=== PATIENT | male | born 1960 | race Caucasian/White ===

== ENCOUNTER 2016-02-09 20:39 | Emergency (ER) | payer SELFPAY ==
[2016-01-22 23:11] VITALS: BMI 24.7
[~2016-02-09 20:39] MED LIST: ASPIRIN81 MG PO; LOPRESSOR25 MG PO; NITROSTAT0.4 MG SL; PLAVIX75 MG PO; PRAVACHOL20 MG PO
[2016-02-09 21:37] LABS: BASOPHILS 0.3 % (0.0-2.0); EOSINOPHILS 2.3 % (0-7); HEMATOCRIT 47.7 % (42.0-54.0); HEMOGLOBIN 16.7 g/dL (13.5-17.5); IMMATURE GRANULOCYTES 0.3 % (0-5); LYMPHOCYTES 39.6 % (15-50); MCH 33.5 pg (26.0-34.0); MCV 95.8 fL (80.0-100.0); MEAN PLATELET VOLUME 10.5 fL (7.4-10.4); MONOCYTES 8.1 % (2-11); NEUTROPHILS 49.4 % (40-80); PLATELET COUNT 200 10x3/uL (130-400); RBC 4.98 10x6/uL (4.20-6.10); RDW 12.1 % (11.5-14.5); WBC 7.9 10x3/uL (4.8-10.8)
[2016-02-09 21:54] LABS: ALBUMIN 3.3 g/dL (3.4-5.0); ALKALINE PHOSPHATASE 137 U/L (46-116); ALT (SGPT) 39 U/L (10-68); BILIRUBIN - TOTAL 0.22 mg/dL (0.2-1.3); CALC OSMOLALITY 275 mosm/kg (275-300); CALCIUM 8.8 mg/dL (8.5-10.1); CARBON DIOXIDE 27.1 mmol/L (21.0-32.0); CHLORIDE - SERUM 104 mmol/L (98-107); CREATININE - SERUM 0.9 mg/dL (0.6-1.3); GLUCOSE 97 mg/dL (74-106); POTASSIUM - SERUM 3.8 mmol/L (3.5-5.1); PROTEIN - SERUM 7.4 g/dL (6.4-8.2); SODIUM 139 mmol/L (136-145); UREA NITROGEN 8 mg/dL (7-18); eGFR NON AFRICAN AMERICAN > 90 mL/min (90-120)
[2016-02-09 22:05] LABS: CKMB 0.7 U/L (0.0-3.6); CREATINE KINASE 65 UL (21-232)
[2016-02-09 22:07] LABS: TROPONIN-I 0.176 ng/mL (0.000-0.060)
== END 2016-02-10 00:07 | disposition home or self-care (01) ==
LOC: D.ER 20:39
PROVIDERS: Emergency Medicine
DX: R07.9 Chest pain, unspecified (principal); I25.10 Atherosclerotic heart disease of native coronary artery without angina pectoris; J44.9 Chronic obstructive pulmonary disease, unspecified; F17.200 Nicotine dependence, unspecified, uncomplicated

== ENCOUNTER 2016-03-09 13:59 | Outpatient (CLI) | payer SELFPAY ==
[~2016-03-09] VITALS: Ht 172.7 cm; Wt 67.6 kg
--- NOTE | ~2016-03-09 | HEMODYNAMI ---
PATIENT:JULIANA ALVARADO MEDICAL RECORD: [id number] : 64 [facility] [id number] ADMISSION DATE: 03/09/16 Generatedon:03/10/201611:40 Patient name: JULIANA ALVARADO Patient #: [id number] SSN: [id number] : 1960 Date of study: 03/10/2016 Page: Of Hemodynamic Procedure Report Patient Data Patient Demographics Procedure consent was obtained First Name: JULIANA Gender: Male Last Name: JENNY : 1960 Middle Initial: PEPE Age: 55 year(s) Patient #: [id number] Race: SSN: [id number] Additional ID: [id number] Contact details [address]: [address] [place] [address] State: [place] City: [place] Zip code: [address] Past Medical History Allergies: No known allergies Admission Admission Data Admission Date: 03/09/2016 Admission Time: 14:07 Room #: .[facility] Insurance Payor: None Height (in.): 68 BSA: 1.8 (m2) Height (cm.): 172.72 BMI: 22.67 (kg/m2) Weight (lbs.): 149.1 Weight (kg.): 67.63 Lab Results Lab Result Date: 03/10/2016 Lab Result Time: 5:42 Biochemistry Name Units Result Min Max BUN mg/dl 11 --(-*--)-- 7 18 Creatinine mg/dl 1 --(--*-)-- 0.6 1.3 CBC Name Units Result Min Max Hematocrit % 50.8 --(--*-)-- 42 54 Hemoglobin g/dl 18 --(----)*- 13.5 17.5 Procedure Procedure Types Cath Procedure Diagnostic Procedure C LH w/Coronaries PCI Procedure Coronary Stent Initial Procedure Description Procedure Date Procedure Date: 03/10/2016 Procedure Start Time: 11:03 Procedure End Time: 11:35 Procedure Staff Name Function Diony Mathias MD Performing Physician Jerrell Copeland RT Scrub Florentino Kumari RN Nurse Charles Ortiz RT Buffet Runner Neil Dickson RT Monitor Procedure Data Cath Procedure Fluoroscopy Diagnostic fluoroscopy Total fluoroscopy Time: 8.9 time: 8.9 min min Diagnostic fluoroscopy Total fluoroscopy dose: 807 dose: 807 mGy mGy Contrast Material Contrast Material Type Amount (ml) Isovue 300 133 Entry Location Entry Primary Successful Side Size Upsize Upsize Entry Closure Moreno ccessful Closure Location (Fr) 1 (Fr) 2 (Fr) Remarks Device Remarks Radial Right 6 Fr Mechanical artery Short Compression Estimated blood loss: 10 ml Diagnostic catheters Device Type Used For End Catheter Placement Terumo Optitorque 5Fr Procedure Durant 4.5 catheter Procedure Complications No complications Procedure Medications Medication Administration Route Dosage Oxygen NC 2 l/min Lidocaine 2% added to field 20 Heparin Flush Bag added to field 2 bags (1000units/500ml NS) 0.9% NaCl I.V. 100 ml/hr Versed I.V. 1 mg Fentanyl I.V. 50 mcg Versed I.V. 1 mg Fentanyl I.V. 50 mcg Radial Cocktail I.A. 1 syringe (Verapomil 2mg/Nitro 400mcg/Heparin 1500units) Versed I.V. 0.5 mg Fentanyl I.V. 25 mcg Heparin Bolus I.V. 4000 units Integrilin (Bolus I.V. 6.2 ml 2mg/ml) Plavix P.O. 600 mg Hemodynamics Rest BSA: 1.8 (m2) HGB: 18 (g/dl) O2 Consumption: Estimated: 216.1 (ml/min) O2 Consum ption indexed: Estimated:120.06 (ml/min/m) Heart Rate: 73 (bpm) Snapshots Pre Cath Intra NCS Post Cath Vital Signs Time Heart Resp SPO2 etCO2 [id number] NIBP Rhythm Pain Sedation Rate (ipm) (%) (mmHg) (mmHg) (mmHg) Status Level (bpm) 10:48:59 69 14 96 0 0 101/67(81) NSR 0 (11) 10(A) , No pain 10:53:02 72 16 95 0 0 96/62(81) NSR 0 (11) 10(A) , No pain 10:57:04 69 15 96 0 0 97/61(89) NSR 0 (11) 10(A) , No pain 11:01:04 75 17 95 0 0 94/67(87) NSR 0 (11) 10(A) , No pain 11:05:03 74 16 95 0 0 100/69(84) NSR 0 (11) 9(A) , No pain 11:09:05 75 15 93 0 0 94/65(82) NSR 0 (11) 9(A) , No pain 11:13:09 72 17 95 0 0 86/52(75) NSR 0 (11) 9(A) , No pain 11:17:10 70 15 94 0 0 86/49(78) NSR 0 (11) 9(A) , No pain 11:21:14 69 16 95 0 0 90/47(74) NSR 0 (11) 9(A) , No pain 11:25:18 68 16 94 0 0 86/50(68) NSR 0 (11) 9(A) , No pain 11:29:20 70 16 94 0 0 82/49(65) NSR 0 (11) 9(A) , No pain 11:33:21 66 15 95 0 0 82/48(66) NSR 0 (11) 10(A) , No pain 11:37:19 63 16 96 0 0 92/50(0) NSR 0 (11) 10(A) , No pain Medications Time Medication Route Dose Verified Delivered Reason Note s Effectiveness by by 10:49:35 Oxygen NC 2 l/min Diony Buffie used for Mey Kumari RN procedure 10:49:42 Lidocaine 2% added 20ml Diony Diony for local to vial Mey Mathias MD anesthetic field 10:49:48 Heparin Flush added 2 bags Dionyelizabeth Vora used for Bag to Mey Mathias MD procedure (1000units/500ml field NS) 10:49:56 0.9% NaCl I.V. 100 Diony Buffie Per physician ml/hr Mey Kumari RN 10:59:10 Versed I.V. 1 mg Diony Buffie for sedation Mey Kumari RN 10:59:16 Fentanyl I.V. 50 mcg Diony Buffie for sedation Mey Kumari RN 11:05:27 Versed I.V. 1 mg Diony Buffie for sedation Tauth MD Kumari RN 11:05:31 Fentanyl I.V. 50 mcg Diony Good for sedation Mey Kumari RN 11:10:24 Radial Cocktail I.A. 1 Diony Vora for (Verapomil syringe Mey Mathias MD vasodilation 2mg/Nitro 400mcg/Heparin 1500units) 11:11:36 Versed I.V. 0.5 mg Diony Good for sedation Mey Kumari RN 11:11:40 Fentanyl I.V. 25 mcg Diony Good for sedation Mey Kumari RN 11:14:17 Heparin Bolus I.V. 4000 Diony Good for veri fied units Mey Kumari RN anticoagulation with dr mathias 11:17:43 Integrilin I.V. 6.2 ml Diony Good for (Bolus 2mg/ml) Mey Kumari RN antiplatelet therapy 11:35:09 Plavix P.O. 600 mg Diony Good for Mey Kumari RN antiplatelet therapy Procedure Log Time Note 10:15:48 Charles Ortiz RT(R) sent for patient. Start room use. 10:32:44 ACC Patient presents with Unstable Angina CCS Anginal Class 3--Marked limitation of physical activity, angina occurs with ordinary activity.. 10:32:46 Diagnostic Cath status Urgent 10:32:55 Time tracking: Regular hours 10:32:59 Plan of Care:Hemodynamics will remain stable., Cardiac rhythm will remain stable., Comfort level will be maintained., Respiratory function will remain adequate., Patient/ family verbilizes understanding of procedure., Procedure tolerated without complication., Recovers from procedure without complications.. 10:33:05 Patient received from PCU to CCL 1 Alert and oriented. Tansferred to table in Supine position. 10:33:12 Warm blankets applied, and bradford hugger turned on for patient comfort. 10:33:12 Correct patient and procedure confirmed by team. 10:33:13 Signed procedure consent form obtained from patient. 10:33:14 ECG and BP/O2 sat monitors applied to patient. 10:47:51 Vital chart was started 10:49:30 Pre-procedure instructions explained to patient. 10:49:31 Pre-op teaching completed and patient verbalized understanding. 10:49:33 Family in patients room. 10:49:34 Patient NPO since Midnight. 10:49:35 Oxygen 2 l/min NC was given by Florentino Kumari RN; used for procedure; 10:49:42 Lidocaine 2% 20ml vial added to field was given by Diony Mathias MD; for local anesthetic; 10:49:44 Patient allergic to No known allergies 10:49:46 Is the patient allergic to Iodine/contrast media? No. 10:49:47 Is patient on blood thinner?No 10:49:48 Heparin Flush Bag (1000units/500ml NS) 2 bags added to field was given by Diony Mathias MD; used for procedure; 10:49:48 Patient diabetic? No. 10:49:51 Previous problem with sedation/anesthesia? No ? 10:49:52 Snore? Yes 10:49:53 Sleep apnea? No 10:49:54 Deviated septum? No 10:49:55 Opens mouth fully? Yes 10:49:56 0.9% NaCl 100 ml/hr I.V. was given by Florentino Kumari RN; Per physician; 10:49:56 Sticks out tongue? Yes 10:49:58 Airway obstruction? No ? 10:50:00 Dentures? Yes in tight 10:50:04 Modified Marcus's test Ulnar < 7 seconds 10:50:05 Patient pain scale 0/10 ?. 10:50:17 IV started by Florentino Kumari RN inleft hand with a 22 gauge IV catheter with 0.9% NaCl at KVO. 10:50:27 IV right forearm D/C'd due to infiltration. 10:51:22 Lab Result : BUN 11 mg/dl 10:51:22 Lab Result : Hemoglobin 18 g/dl 10:51:22 Lab Result : Creatinine 1 mg/dl 10:51:22 Lab Result : Hematocrit 50.8 % 10:51:25 Lab results completed and on chart. 10:51:28 Right Radial & Right Groin area was prepped with chlora-prep and draped in sterile fashion 10:51:31 Alarms reviewed by R. N. 10:51:31 Sharps counted by scrub and verified by R.N. 10:51:32 Physician paged 10:51:34 Use device set Radial Dx 10:51:37 Tegaderm 4 x 4 opened to sterile field. 10:51:39 Acist Manifold opened to sterile field. 10:51:42 Acist Hand Control opened to sterile field. 10:51:45 Acist Syringe opened to sterile field. 10:51:45 Cardinal Cath Pack opened to sterile field. 10:51:46 Bag Decanter opened to sterile field. 10:51:46 Terumo 6Fr Slender Glidesheath opened to sterile field. 10:51:47 St Олег 260cm J .035 wire opened to sterile field. 10:51:52 Baseline sample Acquired. 10:51:58 Rhythm: sinus rhythm 10:51:59 Full Disclosure recording started 10:52:17 H&P Date Dictated: 03/09/2016 Within 30 days and on chart.. 10:52:28 Patient Height : 68 inches 10:52:34 Patient Weight : 149.1 lbs 10:54:41 Zero performed for pressure channel P1 10:56:19 Insurance Payor : None 10:57:59 --------ALL STOP TIME OUT------ 10:58:00 Final Timeout: patient, procedure, and site verified with staff and physician. All members of the team are in agreement. 10:58:01 Right Radial & Right Groin site verified by team. 10:58:03 Physical assessment completed. ASA score P 2 - A patient with mild systemic disease as per Diony Mathias MD. 10:58:06 Sedation plan: IV Moderate Sedation Versed, Fentanyl 10:59:10 Versed 1 mg I.V. was given by Florentino Kumari RN; for sedation; 10:59:16 Fentanyl 50 mcg I.V. was given by Florentino Kumari RN; for sedation; 11:03:27 Procedure started. 11:03:34 Local anesthetic to right radial artery with Lidocaine 2% by Diony Mathias MD.INITIAL ACCESS ONLY 11:03:50 A 6 Fr Short sheath was inserted into the Right Radial artery 11:05:27 Versed 1 mg I.V. was given by Florentino Kumari RN; for sedation; 11:05:31 Fentanyl 50 mcg I.V. was given by Florentino Kumari RN; for sedation; 11:10:24 Radial Cocktail (Verapomil 2mg/Nitro 400mcg/Heparin 1500units) 1 syringe I.A. was given by Diony Mathias MD; for vasodilation; 11:11:25 A Terumo Optitorque 5Fr Durant 4.5 catheter was advanced over the wire and used for Procedure. 11:11:32 LV gram done using STEIN 11:11:36 Versed 0.5 mg I.V. was given by Florentino Kumari RN; for sedation; 11:11:37 Injector settings: Ml/sec: 5, Volume: 15, 11:11:40 Fentanyl 25 mcg I.V. was given by Florentino Kumari RN; for sedation; 11:11:49 EF : 50 % 11:11:56 LCA angiography performed. 11:13:51 RCA angiography performed. 11:14:17 Heparin Bolus 4000 units I.V. was given by Florentino Kumari RN; for anticoagulation; verified with dr mathias 11:14:26 Cordis 6FR XBLAD 3.5 guide catheter opened to sterile field. 11:14:32 Catheter removed. 11:14:35 Merit BasixCompak Inflation Kit opened to sterile field. 11:14:37 [place] Staff Ranker Choice PT Extra Support J 300cm .014 gu opened to sterile field. 11:14:47 Proceeding to intervention. 11:15:03 ACC PCI Site: mLAD has 90% stenosis. 11:15:06 ACC Pre-intervention ADRIANA Flow is 1. 11:15:12 6 Fr xblad 3.5 guide catheter was inserted over the wire 11:15:18 PT ES wire advanced. 11:16:30 Wire advanced across lesion. 11:17:43 Integrilin (Bolus 2mg/ml) 6.2 ml I.V. was given by Florentino Kumari RN; for antiplatelet therapy; 11:18:01 Inflation number: 1 A Euphora 1.5 x 15 Balloon was prepped and advanced across the Mid LAD, then inflated to 21 SRINI for 0:10 (min:sec). 11:18:17 Inflation number: 2 The Euphora 1.5 x 15 Balloon was reinflated across the Mid LAD, to 23 SRINI for 0:10 (min:sec). 11:18:44 Inflation number: 3 The Euphora 1.5 x 15 Balloon was reinflated across the Mid LAD, to 23 SRINI for 0:10 (min:sec). 11:19:04 Balloon removed over the wire. 11:20:15 Inflation number: 4 A Euphora 2.0 x 15 Balloon was prepped and advanced across the Mid LAD, then inflated to 23 SRINI for 0:10 (min:sec). 11:20:31 Inflation number: 5 The Euphora 2.0 x 15 Balloon was reinflated across the Mid LAD, to 23 SRINI for 0:10 (min:sec). 11:21:10 Balloon removed over the wire. 11:23:54 Inflation number: 6 A [place] Sci Berkshire 3.0 X 12 balloon was prepped and advanced across the Mid LAD, then inflated to 15 SRINI for 0:10 (min:sec). 11:24:46 Inflation number: 7 The [place] Sci [place]hire 3.0 X 12 balloon was reinflated across the Mid LAD, to 13 SRINI for 0:10 (min:sec). 11:25:30 Balloon removed over the wire. 11:29:58 Inflation Number: 8 A Promus Premier OTW 3.0 x 8 stent was prepped and advanced across the Mid LAD. The stent was deployed at 19 SRINI for 0:10 (min:sec). 11:30:43 Stent catheter was removed intact over wire. 11:30:43 Wire removed. 11:30:44 Guide catheter removed. 11:31:06 Terumo TR Band Standard opened to sterile field. 11:31:39 Sheath removed intact; hemostasis achieved with Mechanical Compression to the Right Radial artery. 11:31:41 Procedure ended.(Physican Out) 11:33:34 Fluoroscopy time 08.90 minutes. 11:33:39 Flurop Dose total: 807 11:33:39 Fluoroscopy dose: 807 mGy 11:33:45 Contrast amount:Isovue 300 133ml. 11:33:56 Sharps counted by scrub and verified by R.N. 11:33:59 TR band inflated with 12cc of air. 11:34:01 Insertion/operative site no bleeding no hematoma. 11:34:28 Post right radial artery:stable, soft, clean and dry 11:34:30 Post Procedure Pulses reassessed and unchanged 11:34:33 Post-procedure physical assessment completed. ASA score P 2 - A patient with mild systemic disease as per Diony Mathias MD. 11:34:35 Post procedure rhythm: unchanged. 11:34:37 Estimated blood loss: 10 ml 11:34:39 Post procedure instruction explained to patient.Patient verbalizes understanding. 11:34:40 Patient needs reinforcement of post procedure teaching. 11:34:48 Procedure type changed to Cath procedure, Diagnostic procedure, LHC, LHC w/Coronaries, PCI procedure, Coronary Stent Initial 11:35:09 Plavix 600 mg P.O. was given by Florentino Kumari RN; for antiplatelet therapy; 11:35:32 Procedure and supply charges have been captured, reviewed, submitted and are correct. 11:35:35 Procedure Complication : No complications 11:35:37 Vital chart was stopped 11:35:37 See physician's report for complete and final results. 11:35:41 Report given to PCU. 11:35:50 Patient transfered to PCU with Stretcher. 11:35:53 Procedure ended. 11:35:53 Full Disclosure recording stopped 11:35:59 ACC-PCI Only Patient was given prescriptions, or instructed by Diony Mathias MD to start/continue the following medications upon discharge: Plavix 11:36:33 End room use (Document Last) Intervention Summary Intervention Notes Time ActionType Lesion and Equipment Action# Pressure Duration Attributes Used 11:18:01 Inflate Mid LAD Euphora 1 21 00:10 balloon 1.5 x 15 Balloon 11:18:17 Reinflate Mid LAD Euphora 2 23 00:10 balloon 1.5 x 15 Balloon 11:18:44 Reinflate Mid LAD Euphora 3 23 00:10 balloon 1.5 x 15 Balloon 11:20:15 Inflate Mid LAD Euphora 4 23 00:10 balloon 2.0 x 15 Balloon 11:20:31 Reinflate Mid LAD Euphora 5 23 00:10 balloon 2.0 x 15 Balloon 11:23:54 Inflate Mid LAD [place] 6 15 00:10 balloon Sci [place]kshire 3.0 X 12 balloon 11:24:46 Reinflate Mid LAD [place] 7 13 00:10 balloon Sci [place] 3.0 X 12 balloon 11:29:58 [address] stent Mid LAD Promus 8 19 00:10 Premier OTW 3.0 x 8 stent Device Usage Item Name Manufacture Quantity Catalog Number Hospital Part Current [facility] Lot# / Charge Number Stock Stock Serial# Code Tegaderm 4 3M 1 [id number] 129261 576271 5 x 4 Acist Acist 1 12457 282955 273253 676954 [facility]idata [facility] Acist Hand Acist 1 37406 892861 502533 306041 5 Control Medical Systems Inc Acist Acist 1 48074 772416 248258 246576 20 Syringe Medical Systems Inc Cardinal Cardinal 1 [id number] 369142 99217 828418 5 Cath Pack Health Bag Microtek 1 2002S 5208819 19958 720809 5 Decanter Medical Inc. Terumo 6Fr Terumo 1 [id number] 163378 407537 976062 [address] Олег St Олег 1 445011 372960 998339 891986 30 260cm J .035 wire Terumo Terumo 1 72-6637 775955 583794 945256 5 Optitorque 5Fr Durant 4.5 catheter Cordis 6FR Cardinal 1 [id number] 402474 201699 877058 [address]BLAD [address] [facility] 1 [id number] 610354 887068 964275 15 BasixCompak Medical Inflation Kit [place] Sci [place] 1 [id number] 918569 011727 899031 5 Choice PT Scientific Extra Support J 300cm .014 gu Euphora 1.5 Medtronic 1 [id number] 518382 624594 369822 5 [id number] x 15 Balloon Euphora 2.0 Medtronic 1 [id number] 305515 196466 509409 5 [id number] x 15 Balloon [place] Sci [place] 1 [id number] 838427 709294 457407 1 [id number] [place] Scientific 3.0 X 12 balloon Promus [place] 1 [id number] 469259 201205 5 [id number] Premier OTW Scientific 3.0 x 8 stent Terumo TR Terumo 1 [id number] 036053 657591 079791 40 Band Standard Signature Audit [place] Stage Time Signature Unsigned Intra-Procedure 03/10/2016 Neil Dickson 11:40:30 AM RT(R) Signatures Monitor : Neil Dickson RT Signature : Date : Time : [facility] [address] [place] [address]
[2016-03-09 12:08] LABS: BASOPHILS 0.2 % (0.0-2.0); EOSINOPHILS 1.3 % (0-7); HEMATOCRIT 50.8 % (42.0-54.0); IMMATURE GRANULOCYTES 0.2 % (0-5); LYMPHOCYTES 29.3 % (15-50); MCH 33.7 pg (26.0-34.0); MCHC 35.4 g/dL (31.0-37.0); MCV 95.1 fL (80.0-100.0); MONOCYTES 8.8 % (2-11); NEUTROPHILS 60.2 % (40-80); PLATELET COUNT 204 10x3/uL (130-400); RBC 5.34 10x6/uL (4.20-6.10); RDW 12.1 % (11.5-14.5); WBC 9.2 10x3/uL (4.8-10.8)
[2016-03-09 12:09] LABS: ALBUMIN 3.8 g/dL (3.4-5.0); ALKALINE PHOSPHATASE 150 U/L (46-116); ALT (SGPT) 38 U/L (10-68); BILIRUBIN - TOTAL 0.47 mg/dL (0.2-1.3); CALC OSMOLALITY 272 mosm/kg (275-300); CALCIUM 9.3 mg/dL (8.5-10.1); CARBON DIOXIDE 27.8 mmol/L (21.0-32.0); CHLORIDE - SERUM 103 mmol/L (98-107); CREATININE - SERUM 1.1 mg/dL (0.6-1.3); GLUCOSE 89 mg/dL (74-106); SODIUM 138 mmol/L (136-145); UREA NITROGEN 8 mg/dL (7-18); eGFR NON AFRICAN AMERICAN 74 mL/min (90-120)
[2016-03-09 12:23] LABS: CHOL - HDL RATIO 5.3 ratio (2.3-4.9); CHOLESTEROL, TOTAL 185 mg/dL (0-200); CKMB 0.7 U/L (0.0-3.6); CREATINE KINASE 94 UL (21-232); HDL CHOLESTEROL 35 mg/dL (32-96); LDL CHOLESTEROL 123 mg/dL (0-100); LDL-HDL RATIO 3.5 ratio (1.5-3.5); TRIGLYCERIDE 137 mg/dL (30-200); TROPONIN-I < 0.017 ng/mL (0.000-0.060)
--- NOTE | 2016-03-09 14:43 | NUR ---
TRANSFER FROM ER BY W/C. KARENINTED TO ROOM. CALL LIGHT IN REACH. WILL CONT. PLAN OF CARE.
[2016-03-09 14:57] VITALS: BP 109/69; Ht 172.7 cm; Wt 67.6 kg
--- NOTE | 2016-03-09 15:35 | NUR ---
CONSENTS SIGNED FOR [facility]. WILL CONT. PLAN OF CARE.
[2016-03-09 16:00] VITALS: BP 109/71
--- NOTE | 2016-03-09 19:03 | NUR ---
SITTING UP IN BED, AAOX3, SKIN WARM AND DRY, RESP UNLABORED, IV PATENT TO LEFT FOREARM, MOOD PLEASANT, DENIES NEEDS
[2016-03-09 21:47] VITALS: BP 105/63
--- NOTE | 2016-03-10 01:42 | NUR ---
PT LAYING IN BED NO DISTRESS OBSERVED CALL LIGHT IN REACH SRX2 BED LOW AND LOCKED WILL MONITOR
[2016-03-10 01:44] VITALS: BP 124/70
--- NOTE | 2016-03-10 05:29 | NUR ---
RESTING QUIETLY IN BED, NO DISTRESS NOTED
[2016-03-10 06:10] VITALS: BP 91/60
[2016-03-10 06:36] LABS: CALC OSMOLALITY 276 mosm/kg (275-300); CALCIUM 8.7 mg/dL (8.5-10.1); CARBON DIOXIDE 27.6 mmol/L (21.0-32.0); CHLORIDE - SERUM 105 mmol/L (98-107); GLUCOSE 90 mg/dL (74-106); POTASSIUM - SERUM 4.5 mmol/L (3.5-5.1); SODIUM 139 mmol/L (136-145); eGFR NON AFRICAN AMERICAN 83 mL/min (90-120)
[2016-03-10 06:43] LABS: UREA NITROGEN 11 mg/dL (7-18)
[2016-03-10 08:00] VITALS: BP 86/48
--- NOTE | 2016-03-10 09:23 | NUR ---
TELEMETRY SR. NPO FOR [facility]. CALL LIGHT IN REACH. WILL CONT. PLAN OF CARE.
--- NOTE | 2016-03-10 10:23 | NUR ---
PRE-OPS GIVEN. TO GUEST EXPERIENCE CAPTAIN BY BED.
--- NOTE | 2016-03-10 11:56 | NUR ---
BACK FROM LAUNDRY TECHNICIAN. VS WNL. RIGHT WRIST STABLE WITH TR BAND INTACT. WILL MONITOR.
--- NOTE | 2016-03-10 12:04 | NUR ---
BACK FROM FIBER ANALYST. VS WNL. RIGHT WRIST STABLE WITH TR BAND INTACT. WILL MONITROR.
[2016-03-10 15:27] VITALS: BP 105/70
--- NOTE | 2016-03-10 15:37 | NUR ---
TR BAND DCD WITHOUT BLEEDING OR HEMATOMA NOTED. IV AND TELEMETRY DCD. DC PLANS GIVEN. UNDERSTANDING VOICED. ESCORTED TO CAR BY W/C.
--- NOTE | 2016-03-13 11:12 | OP ---
PATIENT NAME: JULIANA ALVARADO MEDICAL RECORD: [id number] :64 LOCATION:D.M2 D.2123 ADMISSION DATE:03/09/16 SURGEON: FLACO AMAYA MD DATE OF OPERATION: 03/10/2016 PROCEDURES: 1. PTCA, stent LAD diagonal. 2. Left heart catheterization. 3. Selective coronary angiography. 4. Left ventriculogram. INDICATION: Angina and coronary artery disease. PROCEDURE IN DETAIL: After informed consent was obtained and after detailed explanation of risks, benefits, as well as alternative therapies, the patient elected to proceed with angiogram and angioplasty. The right radial area was prepped and draped in normal sterile fashion. Right radial artery was cannulated via modified Seldinger technique with placement of 6-Swedish sheath. All catheters exchanged through this sheath. FINDINGS: The left ventriculogram was performed in standard 30-degree STEIN view, reveals mild global hypokinesis throughout all segments. Overall ejection fraction is 45% to 50%. SELECTIVE CORONARY ANGIOGRAPHY: 1. Left main showed no significant angiographic disease. 2. Left anterior descending has previously placed stents; these are widely patent with no significant restenosis. The diagonal; however, has an 80% to 90% stenosis at the ostium. 3. Left circumflex shows moderate irregularities, but no flow-limiting stenosis. 4. Right coronary has moderate irregularities, but no flow-limiting stenosis. PTCA STENT OF THE LAD DIAGONAL: We ballooned this with a 1.5 x 2.0 x 3.0 balloon. Stenting was undertaken with a 3.0 x 9 Promus stent. Result was 0% residual stenosis. OVERALL IMPRESSION: Successful percutaneous transluminal coronary angioplasty stent of the left anterior descending diagonal going from 80% to 90% initial stenosis to 0% residual. TRANSINT:[id number] Voice Confirmation ID: [id number] DOCUMENT ID: [id number] FLACO AMAYA MD at 1112 CC: [id number] DICTATION DATE: 03/10/16 1136 FORESTRY FARM LABORER: 03/10/16 1145 DIS IN 03/10/16 [place] [address]
--- NOTE | 2016-03-13 11:12 | DS ---
PATIENT:JULIANA ALVARADO :64 MEDICAL RECORD: [id number] DISCHARGE SUMMARY ADMISSION DATE: 03/09/16 DISCHARGE DATE: 03/10/16 DISCHARGE DIAGNOSES: 1. Angina. 2. Coronary artery disease. 3. Percutaneous transluminal coronary angioplasty, stent left anterior descending diagonal this admission. HOSPITAL COURSE: This is a gentleman who presents with anginal symptomatology, found to have significant disease at LAD diagonal and underwent successful PTCA stent of the LAD diagonal, had an uneventful postop course. He was discharged home with the addition of aspirin and Plavix to his medical regimen. We will follow up with [facility] in 1 month. TRANSINT:[id number] Voice Confirmation ID: [id number] DOCUMENT ID: [id number] FLACO AMAYA MD at 1112 CC: [id number] DICTATION DATE: 03/10/16 1133 BRAND LEAD: 03/10/16 1139 DIS IN 03/10/16 [id number] [place] [address]
== END 2016-03-10 15:39 | disposition home or self-care (01) ==
LOC: OBSVTIME → D.M2 13:59 → D.CATH 13:59 → OBSVTIME 14:07 → D.M2 14:07 → D.ER 14:07 → EDSTATUS 03-10 14:30 → D.M2 03-10 15:39 → D.CATH 03-10 15:39 → D.M2 03-10 15:39
PROVIDERS: Emergency Medicine; Internal Medicine Cardiovascular Disease
DX: I25.110 Atherosclerotic heart disease of native coronary artery with unstable angina pectoris (principal); I10 Essential (primary) hypertension; E78.5 Hyperlipidemia, unspecified; I42.9 Cardiomyopathy, unspecified